=== PATIENT | male | born 1985 | race Caucasian/White ===

== ENCOUNTER 2018-06-06 02:29 | Emergency (ER) | payer OTHER ==
[~2018-06-06] VITALS: Ht 182.9 cm; Wt 91.6 kg
[2018-06-06] MEDS ORDERED: LIDOCAINE 1% Multi-Dose 20 ML VIAL. ID ONE (03:00)
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
[2018-06-06] MEDS ORDERED: SULF1TAB24 PO (05:01)
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
[2018-06-06] MEDS ORDERED: NEOMY/BACITR/POLYMYXIN OINT PACKET. TP ONE (05:15)
[2018-06-06] MEDS ORDERED: SMZ/TMP 800/160MG TABLET. PO ONE (05:15)
[2018-06-06 05:38] VITALS: BP 135/63
== END 2018-06-06 05:37 | disposition home or self-care (01) ==
LOC: EEVIPCON 02:29 → ER 02:29
DX: S02.80XA Fracture of other specified skull and facial bones, unspecified side, initial encounter for closed fracture (principal); S01.81XA Laceration without foreign body of other part of head, initial encounter; S09.8XXA Other specified injuries of head, initial encounter; S09.93XA Unspecified injury of face, initial encounter; Y04.2XXA Assault by strike against or bumped into by another person, initial encounter; Y93.89 Activity, other specified; Y92.89 Other specified places as the place of occurrence of the external cause; Y99.8 Other external cause status
CPT/HCPCS: 12014; 70450; 70486; 99284-25